=== PATIENT | female | born 1955 | race Caucasian/White ===

== ENCOUNTER → 2016-08-13 | Outpatient (CLI) | payer OTHER | LOC: KOH-I 13:20 | DX: M84.372A Stress fracture, left ankle, initial encounter for fracture (principal); S93.492A Sprain of other ligament of left ankle, initial encounter | CPT/HCPCS: 73721 ==

== ENCOUNTER 2021-04-07 17:25 | Emergency (ER) | payer MEDICARE, OTHER ==
[2021-04-07] MEDS ORDERED: LODINE CAP 300300 MG PO (18:44)
== END 2021-04-07 19:04 | disposition home or self-care (01) ==
LOC: ER1 17:25
DX: S90.32XA Contusion of left foot, initial encounter (principal); I10 Essential (primary) hypertension; W20.8XXA Other cause of strike by thrown, projected or falling object, initial encounter; Y92.009 Unspecified place in unspecified non-institutional (private) residence as the place of occurrence of the external cause
CPT/HCPCS: 73610; 73630; 99283